=== PATIENT | female | born 1940 | race Caucasian/White ===

== ENCOUNTER 2017-05-17 18:28 | Emergency (ER) | payer OTHER ==
[~2017-05-17] VITALS: Ht 162.6 cm; Wt 74.8 kg
[~2017-05-17 18:28] MED LIST: CALTRATE PLUS T1 TAB PO; CENTRUM TABLET1 TAB PO; CLONAZEPAM1 MG PO; HYZAAR 100/25 T1 TAB PO; NORVASC5 MG PO; SYNTHROID150 MCG PO; [UNRECOGNIZED DRUG - REMARK]
== END 2017-05-17 23:35 | disposition home or self-care (01) ==
LOC: ER 18:28
DX: S60.212A Contusion of left wrist, initial encounter (principal); W18.09XA Striking against other object with subsequent fall, initial encounter; Y93.89 Activity, other specified; Y92.018 Other place in single-family (private) house as the place of occurrence of the external cause; Y99.8 Other external cause status

== ENCOUNTER 2017-06-16 08:15 | Outpatient (CLI) | payer OTHER | END 2017-06-16 08:27 | disposition home or self-care (01) | LOC: LAB 08:15 | DX: E55.9 Vitamin D deficiency, unspecified (principal); M85.9 Disorder of bone density and structure, unspecified; E56.1 Deficiency of vitamin K; E88.89 Other specified metabolic disorders; E83.42 Hypomagnesemia ==

== ENCOUNTER 2017-07-24 10:18 | Outpatient (CLI) | payer OTHER | END 2017-07-24 10:34 | disposition home or self-care (01) | LOC: NUCLEAR 10:18 | DX: M81.0 Age-related osteoporosis without current pathological fracture (principal); M89.9 Disorder of bone, unspecified ==

== ENCOUNTER 2017-09-10 13:52 | Outpatient (CLI) | payer OTHER | END 2017-09-10 13:57 | disposition home or self-care (01) | LOC: SONOGRAMA 13:52 | DX: E03.8 Other specified hypothyroidism (principal); E07.89 Other specified disorders of thyroid ==

== ENCOUNTER 2017-09-10 14:55 | Outpatient (CLI) | payer OTHER | END 2017-09-10 15:07 | disposition home or self-care (01) | LOC: LAB 14:55 | DX: E04.1 Nontoxic single thyroid nodule (principal) ==

== ENCOUNTER 2017-11-05 13:52 | Outpatient (CLI) | payer OTHER | END 2017-11-05 14:02 | disposition home or self-care (01) | LOC: MRI 13:52 | DX: R41.3 Other amnesia (principal) | CPT/HCPCS: 70553; A9579 ==

== ENCOUNTER → 2018-03-01 | Outpatient (CLI) | payer OTHER | END | disposition home or self-care (01) | LOC: TOM 12:09 | DX: R10.0 Acute abdomen (principal) ==

== ENCOUNTER 2018-07-20 14:16 | Outpatient (CLI) | payer OTHER | END 2018-07-20 14:21 | disposition home or self-care (01) | LOC: MAMO-SONO 14:16 | DX: Z12.31 Encounter for screening mammogram for malignant neoplasm of breast (principal); Z87.898 Personal history of other specified conditions; N63.10 Unspecified lump in the right breast, unspecified quadrant; N64.4 Mastodynia; N60.11 Diffuse cystic mastopathy of right breast ==

== ENCOUNTER 2018-08-26 15:13 | Outpatient (CLI) | payer OTHER ==
[~2018-08-26 15:13] MED LIST changes: +FLONASE ALLERG9.9 ML NASAL; +LEVAQUIN500 MG PO
== END 2018-08-26 16:33 | disposition home or self-care (01) ==
LOC: MRI 15:13
DX: R55 Syncope and collapse (principal)
CPT/HCPCS: 70551

== ENCOUNTER → 2019-03-30 | Outpatient (CLI) | payer OTHER | END | disposition home or self-care (01) | LOC: RAD 13:15 | DX: M62.89 Other specified disorders of muscle (principal); M54.2 Cervicalgia ==

== ENCOUNTER 2019-06-17 10:18 | Outpatient (CLI) | payer OTHER | END 2019-06-17 10:26 | disposition home or self-care (01) | LOC: SONOGRAMA 10:18 | DX: R10.13 Epigastric pain (principal); R11.0 Nausea; E78.49 Other hyperlipidemia; K31.84 Gastroparesis; Z86.010 Personal history of colon polyps; N39.0 Urinary tract infection, site not specified ==

== ENCOUNTER 2019-07-05 18:41 | Inpatient (IN) | payer OTHER ==
[~2019-07-05] VITALS: Ht 152.4 cm; Wt 78.9 kg
[2019-07-05] MEDS ORDERED: REGLAN5 MG/5 ML (19:10)
[2019-07-05] MEDS ORDERED: DEXILANT60 MG (19:10)
[2019-07-05] MEDS ORDERED: NEURONTIN300 MG (19:11)
--- NOTE | 2019-07-05 19:11 | NUR ---
PTE REFERIDO POR DR IRIZARRY SE GA S/V YSE UBIAC EN AREA DE OBSERVACION
[2019-07-11] MEDS ORDERED: INTESTINEX680 M1 PO (09:37)
== END 2019-07-11 11:39 | disposition home or self-care (01) | DRG 690 ==
LOC: ER 18:41 → SEC-K 19:29 → MEDI 07-06 11:27
PROVIDERS: ADMIT Internal Medicine
PROC: BW41ZZZ Ultrasonography of Abdomen and Pelvis (ICD-10-PCS; principal; 2019-07-05)
PROC: 8E0ZXY6 Isolation (ICD-10-PCS; 2019-07-05)
PROC: 02HV33Z Insertion of Infusion Device into Superior Vena Cava, Percutaneous Approach (ICD-10-PCS; 2019-07-06)
DX: N39.0 Urinary tract infection, site not specified (principal); E03.8 Other specified hypothyroidism; I10 Essential (primary) hypertension; G60.8 Other hereditary and idiopathic neuropathies; G30.0 Alzheimer's disease with early onset; F02.80 Dementia in other diseases classified elsewhere, unspecified severity, without behavioral disturbance, psychotic disturbance, mood disturbance, and anxiety; I87.8 Other specified disorders of veins

== ENCOUNTER 2019-08-04 12:54 | Outpatient (CLI) | payer OTHER ==
[~2019-08-04 12:54] MED LIST changes: +DEXILANT60 MG; +INTESTINEX680 M1 PO; +NEURONTIN300 MG; +REGLAN5 MG/5 ML
== END 2019-08-04 13:06 | disposition home or self-care (01) ==
LOC: MAMO-SONO 12:54
DX: Z12.31 Encounter for screening mammogram for malignant neoplasm of breast (principal); Z87.898 Personal history of other specified conditions; N64.4 Mastodynia; N63.10 Unspecified lump in the right breast, unspecified quadrant; N63.20 Unspecified lump in the left breast, unspecified quadrant; N60.11 Diffuse cystic mastopathy of right breast

== ENCOUNTER 2019-08-11 10:19 | Outpatient (CLI) | payer OTHER | END 2019-08-11 11:20 | disposition home or self-care (01) | LOC: NUCLEAR 10:19 | DX: M81.0 Age-related osteoporosis without current pathological fracture (principal) ==

== ENCOUNTER 2020-09-26 14:05 | Outpatient (CLI) | payer OTHER | END 2020-09-26 14:18 | disposition home or self-care (01) | LOC: RAD 14:05 | PROVIDERS: ATTEND Orthopaedic Surgery | DX: M25.551 Pain in right hip (principal); M25.561 Pain in right knee ==

== ENCOUNTER 2020-10-08 11:07 | Outpatient (CLI) | payer OTHER | END 2020-10-08 11:15 | disposition home or self-care (01) | LOC: RAD 11:07 | PROVIDERS: ATTEND Orthopaedic Surgery | DX: M25.552 Pain in left hip (principal); M25.562 Pain in left knee; M25.561 Pain in right knee; M79.642 Pain in left hand ==

== ENCOUNTER 2021-01-14 12:52 | Outpatient (CLI) | payer OTHER | END 2021-01-14 12:58 | disposition home or self-care (01) | LOC: RAD 12:52 | DX: I10 Essential (primary) hypertension (principal) ==

== ENCOUNTER → 2021-08-16 | Outpatient (CLI) | payer OTHER | END | disposition home or self-care (01) | LOC: NUCLEAR 13:08 | PROVIDERS: ATTEND Orthopaedic Surgery | DX: M81.0 Age-related osteoporosis without current pathological fracture (principal) ==

== ENCOUNTER 2021-08-29 14:42 | Outpatient (CLI) | payer OTHER | END 2021-08-29 14:51 | disposition home or self-care (01) | LOC: MAMO-SONO 14:42 | PROVIDERS: ATTEND Internal Medicine | DX: N63.0 Unspecified lump in unspecified breast (principal); Z12.31 Encounter for screening mammogram for malignant neoplasm of breast ==

== ENCOUNTER 2023-09-16 11:33 | Outpatient (CLI) | payer OTHER | END 2023-09-16 11:36 | disposition home or self-care (01) | LOC: MAMO-SONO 11:33 | PROVIDERS: ATTEND Internal Medicine | DX: N64.4 Mastodynia (principal); R92.8 Other abnormal and inconclusive findings on diagnostic imaging of breast; Z12.31 Encounter for screening mammogram for malignant neoplasm of breast ==

== ENCOUNTER 2023-09-16 12:36 | Outpatient (CLI) | payer OTHER | END 2023-09-16 12:38 | disposition home or self-care (01) | LOC: NUCLEAR 12:36 | PROVIDERS: ATTEND Internal Medicine Rheumatology | DX: M81.0 Age-related osteoporosis without current pathological fracture (principal) ==